=== PATIENT | female | born 1945 | race Caucasian/White ===

== ENCOUNTER → 2019-05-29 13:37 | Outpatient (BNVA) | payer MEDICARE, BC, SELFPAY | PROVIDERS: PCP Family Medicine; Referring Provider Family Medicine; Visit Provider Specialist | DX: G30.9 Alzheimer's disease, unspecified (principal); F02.80 Dementia in other diseases classified elsewhere, unspecified severity, without behavioral disturbance, psychotic disturbance, mood disturbance, and anxiety; F41.8 Other specified anxiety disorders; Z87.891 Personal history of nicotine dependence | CPT/HCPCS: 96116; 99204 ==